=== PATIENT | female | born 1955 | race Caucasian/White ===

== ENCOUNTER 2021-12-25 23:15 | Emergency (ER) | payer MEDICARE, OTHER ==
[2021-12-25] MEDS ORDERED: Sodium Chloride 0.9% 10 ML Syringe FLUSH PRN (23:24)
[2021-12-25] MEDS ORDERED: Ondansetron 4 MG/2 ML SDV IVPUSH ONE (23:24)
[2021-12-25] MEDS ORDERED: HYDROmorphone 1 MG/ML Syringe IVPUSH ONE (23:25)
[2021-12-25] MEDS ORDERED: Sodium Chloride 0.9% 1,000 ML IV ONE (23:27)
[2021-12-26 00:05] LABS: ANION GAP 18.7 mmol/L (5-15); CHLORIDE,CL 100 mmol/L (98-107); ESTIMATED GFR 71 mL/min (>=60); SODIUM,NA 136 mmol/L (136-145)
[2021-12-26] MEDS ORDERED: Potassium Chloride Riders 20 MEQ in Premix Bag 1 BAG IV ONE (00:10)
== END 2021-12-26 02:15 | disposition home or self-care (01) ==
LOC: VM.ED 23:15
DX: K81.9 Cholecystitis, unspecified (principal); E87.6 Hypokalemia
CPT/HCPCS: 36415; 74150; 80053; 82150; 82550; 83690; 85025; 93005; 93010; 96361; 96365; 96375; 99284-25; 99285; J1170; J2405; J3480; J7030